=== PATIENT | male | born 1955 | race Caucasian/White ===

== ENCOUNTER 2017-01-11 09:40 | Emergency (ER) | payer SELFPAY ==
[~2017-01-11] VITALS: Ht 182.9 cm; Wt 68.0 kg
[~2017-01-11 09:40] MED LIST: ALBUTEROL SUL0.083 % IN; ATENOLOL25 MG PO; CHLORTHALID25 MG PO; CIPROFLOXACN500 MG PO; DOXYCYCL HYC100 MG PO; FLEXERIL OR; LISINOPRIL10 MG PO; LORTAB 7.57.5 MG PO; NAPROSYN500 MG PO; OMEPRAZOLE40 MG PO; PENICILLN VK500 MG PO; PROMETHAZINE12.5 M4 PO; PULMICORT180 MCG IN; TRAMADOL HCL50 MG PO; [UNRECOGNIZED DRUG - OTHER] EX
[2017-01-11 10:29] LABS: HEMATOCRIT 55.9 % (39.0-50.0); IMMATURE GRANULOCYTES 0.3 % (0.0-1.0); MEAN CELL VOLUME 84.6 fL CALC (80.0-100.0); MEAN CORPUSCULAR HGB 30.3 pG CALC (26.0-32.0); MEAN CORPUSCULAR HGB CONC 35.8 g/L CALC (32.0-36.0); NEUT# 2.18 thou/uL (1.82-7.42); RED BLOOD COUNT 6.61 mill/uL (4.70-6.10)
[2017-01-11 11:32] LABS: ALBUMIN 5.8 g/dL (3.2-5.0); BILIRUBIN, TOTAL 0.8 mg/dL (0.0-1.4); CALCIUM 9.1 mg/dL (8.4-10.2); POTASSIUM 4.7 mmol/l (3.5-5.1); TOTAL PROTEIN 9.6 g/dL (6.3-8.2)
[2017-01-11 11:51] LABS: CREATININE 7.2 mg/dL (0.7-1.3)
[2017-01-11 12:40] VITALS: BP 146/91
== END 2017-01-11 12:45 | disposition short-term general hospital (02) | DRG 682 ==
LOC: ED 09:40
PROVIDERS: Emergency Medicine
DX: N17.9 Acute kidney failure, unspecified (principal); K85.90 Acute pancreatitis without necrosis or infection, unspecified; K56.609 Unspecified intestinal obstruction, unspecified as to partial versus complete obstruction; M84.48XA Pathological fracture, other site, initial encounter for fracture; E86.0 Dehydration; R10.13 Epigastric pain; R10.33 Periumbilical pain; R11.2 Nausea with vomiting, unspecified; K59.00 Constipation, unspecified; F17.210 Nicotine dependence, cigarettes, uncomplicated

== ENCOUNTER 2022-08-02 05:32 | Emergency (ER) | payer MEDICARE ==
[~2022-08-02] VITALS: Ht 182.9 cm; Wt 56.0 kg
[2022-08-02] MEDS ORDERED: LANTUS100 UNIT SC (05:55)
[2022-08-02] MEDS ORDERED: CLARITIN10 M1 PO (06:42)
[2022-08-02] MEDS ORDERED: AMOXICILLIN500 MG PO (06:42)
[2022-08-02] MEDS ORDERED: DIFLUCAN100 MG PO (06:42)
[2022-08-02 06:55] VITALS: BP 158/82
== END 2022-08-02 06:55 | disposition home or self-care (01) ==
LOC: ED 05:32
DX: B37.0 Candidal stomatitis (principal); J02.9 Acute pharyngitis, unspecified; I10 Essential (primary) hypertension; E11.9 Type 2 diabetes mellitus without complications; Z79.4 Long term (current) use of insulin; F17.200 Nicotine dependence, unspecified, uncomplicated; Z20.822 Contact with and (suspected) exposure to COVID-19